=== PATIENT | male | born 1970 | race Asian ===

== ENCOUNTER 2019-07-17 14:59 | Emergency (ER) | payer SELFPAY ==
[~2019-07-17] VITALS: Ht 170.2 cm; Wt 81.6 kg
[2019-07-17 15:08] VITALS: BP_SYST 159
[2019-07-17] MEDS ORDERED: DIPH-TET-PERTUS Vaccine 0.5 ML VIAL (ADACEL) I.M. ONE (15:30)
[2019-07-17] MEDS ORDERED: LIDOCAINE/EPI 1% 1:100000 20 ML VIAL INJ ONE (15:30)
[2019-07-17 16:03] VITALS: BP_SYST 148
== END 2019-07-17 16:03 | disposition home or self-care (01) ==
LOC: SED 14:59
DX: S51.811A Laceration without foreign body of right forearm, initial encounter (principal); F17.210 Nicotine dependence, cigarettes, uncomplicated; W26.0XXA Contact with knife, initial encounter; Y93.89 Activity, other specified; Y92.89 Other specified places as the place of occurrence of the external cause; Y99.8 Other external cause status
CPT/HCPCS: 90715; 99283